=== PATIENT | female | born 1980 | race Two or more races ===

== ENCOUNTER → 2023-01-02 | Outpatient (CLI) | payer OTHER ==
[~2023-01-02] VITALS: Ht 154.9 cm; Wt 77.1 kg
[~2023-01-02] MED LIST: ADENOSINE 65 MG in GIVE UN-DILUTED 0 ML IV ONE
== END | disposition home or self-care (01) ==
LOC: XYW 08:24
PROVIDERS: ATTEND Internal Medicine
DX: R94.31 Abnormal electrocardiogram [ECG] [EKG] (principal)
CPT/HCPCS: 78452; 93017; A9500; J0153

== ENCOUNTER 2023-02-18 06:55 | Day surgery (SDC) | payer OTHER ==
[~2023-02-18] VITALS: Ht 154.9 cm; Wt 79.4 kg
[2023-02-18] VITALS (8 sets, daily range): BP systolic 124–147; BP diastolic 73–92; PULSE 70–79; RESP 11–20; TEMP 98.1; O2SAT 93–98
[~2023-02-18 06:55] MED LIST changes: -ADENOSINE 65 MG in GIVE UN-DILUTED 0 ML IV ONE; +FOLI-119 PO; +LAMO200T34 PO; +OXCA600T3 PO
[2023-02-18] MEDS ORDERED: HEPARIN IN NS 1000Units/500mL 1,500 ML ONE (08:45)
[2023-02-18] MEDS ORDERED: LIDOCAINE 2%HCL (LOCAL ANESTH.) INJ 20ML MDV ONE (08:45)
[2023-02-18] MEDS ORDERED: IODIXANOL 320MG/ML 100ML BTL IV ONE (08:45)
[2023-02-18] MEDS ORDERED: VERAPAMIL 2.5MG/ML INJ 2ML VIAL IV ONE (09:12)
[2023-02-18] MEDS ORDERED: HEPARIN SODIUM (PORCINE) 5000 UNITS/ML 1ML VIAL ONE (09:12)
[2023-02-18] MEDS ORDERED: ANGIOMAX 250 MG VIAL IV ONE (09:12)
[2023-02-18] MEDS ORDERED: fentaNYL CITRATE 100 MCG/2 ML VL ONE (09:12)
[2023-02-18] MEDS ORDERED: MIDAZOLAM HCL 2MG/2ML 2ml VIAL (1mg/ml) ONE (09:13)
[2023-02-18] MEDS ORDERED: SODIUM CHL 0.9% 0 ML ONE (09:13)
[2023-02-18] MEDS ORDERED: diphenhdrAMINE HCL 50 MG/1 ML VL IV ONE (10:30)
[2023-02-18] MEDS ORDERED: methylPREDNISolone SOD SUCC 125 MG/2 ML VL IV ONE (10:30)
== END 2023-02-18 12:22 | disposition home or self-care (01) ==
LOC: CATH 06:55
PROVIDERS: ATTEND Internal Medicine
DX: R94.39 Abnormal result of other cardiovascular function study (principal); G40.909 Epilepsy, unspecified, not intractable, without status epilepticus
CPT/HCPCS: 93458; C1887; C1894; J1200; J1644; J2250; J2930; J3010; Q9967; 99152